=== PATIENT | female | born 1945 | race Caucasian/White ===

== ENCOUNTER → 2016-09-13 | Outpatient (CLI) | payer MEDICARE ==
[~2016-09-13] MED LIST: ASPIRIN81 M1 PO; FISH OIL PO; KEFLEX500 MG PO; LORTAB 7.5-5001 TAB PO; MULTIVITAMIN1 UDCAP PO; PHENERGAN25 MG PO; SYNTHROID137 MCG PO; TRIAMTERENE-HC1 EACH PO
--- NOTE | ~2016-09-13 | MY24 ---
[facility] A Service of [facility] RADIOLOGY TEXT RESULTS PATIENT: DANIELLE DERAS LOCATION: [facility] : 49 UNIT #: [id number] AGE: [address]: Ángel Gandhi MD SEX: F ORDER DR: [id number] [facility] [address] [place], [place] [address] [id number] MR#: [id number] Acc #: [id number] NAME: DANIELLE DERAS : 1945 SEX: F STUDY DATE/TIME: 09/13/2016 8:16 UNIT: [facility] ROOM: STUDY DESCRIPTION: KEVIN LOPEZ W/ CAD UNI LT Attending Physician: Ángel Gandhi Jr., M.D. Referring Physician: Ángel Gandhi Jr., M.D. Ordering Physician: Ángel Gandhi Jr., M.D. Primary Care Physician: Ángel Gandhi Jr., M.D. MEDICAL IMAGING REPORT This report is preliminary unless electronic signature is present EXAM Diagnostic left mammogram, 09/13/16 INDICATIONS History of right mastectomy for breast cancer. No current complaints on the left. TECHNIQUE Digital CC, MLO, and ML views of the left breast were obtained. Study is reviewed with an FDA-approved CAD device. Comparison made with 08/31/2015, 07/11/2014, and 01/01/2014. FINDINGS Breast parenchyma shows a few scattered fibroglandular densities. No new masses or suspicious microcalcifications are seen. A benign lymph node in the upper outer quadrant is unchanged. There are a few scattered benign calcifications. These results were discussed with the patient at the time of her examination today. IMPRESSION Benign mammogram. Followup in 1 year recommended. Patients over the age of 40 are entered into a reminder system with target due date for the next mammogram. A result letter will also be sent to the patient. BIRADS: 2 Benign Finding Dictated by... [facility] A Service [facility] RADIOLOGY TEXT RESULTS PATIENT: DANIELLE DERAS LOCATION: [facility] : 49 UNIT #: [id number] AGE: [address]: Ángel Ganhdi MD SEX: F ORDER DR: Santhosh Wray Jr., M.D. THIS IS AN ELECTRONICALLY VERIFIED REPORT Santhosh Wray Jr., M.D. at 10/21/2016 4:33 PM NAE/darrell TD: 09/13/2016 13:29 JOB #: [id number] MEDICAL IMAGING REPORT Page 1 of 1 COPY
== END | disposition home or self-care (01) ==
LOC: CMAM 07:31
DX: Z08 Encounter for follow-up examination after completed treatment for malignant neoplasm (principal); Z85.3 Personal history of malignant neoplasm of breast; Z90.11 Acquired absence of right breast and nipple
CPT/HCPCS: G0206